=== PATIENT | female | born 1970 | race Two or more races ===

== ENCOUNTER 2024-05-09 00:08 | Inpatient (IN) | payer MEDICARE, OTHER ==
[2024-05-09] VITALS (13 sets, daily range): BP systolic 132–145; BP diastolic 64–65; TEMP 98.1–99; O2SAT 96–100
[~2024-05-09] VITALS: Ht 157.5 cm; Wt 121.6 kg
[~2024-05-09 00:08] MED LIST: ATOR10TA PO; BENA20TA78 PO; DULO30CA2 PO; FAMO20TA80 PO; GABA300C PO; GLIM4TAB PO; HYDR-500 PO; Insulin Glargine,Hum.rec.anlog SQ; NITR100C6 PO; PREG75CA PO; PROP20TA19 PO; SITA100T PO; SPIR25TA PO
[2024-05-09] MEDS ORDERED: ALBUTEROL FS 2.5 MG/0.5 ML VIAL.NEB ONE (00:58)
[2024-05-09] MEDS: ALBUTEROL FS 2.5 MG/0.5 ML VIAL.NEB NEB ONE (01:08)
[2024-05-09 01:11] LABS: BASOPHILS % (AUTO) 0.6 % (0.0-2.0); EOSINOPHILS # (AUTO) 0.1 K/uL (0.0-0.7); EOSINOPHILS % (AUTO) 2.1 % (0.0-6.0); HEMATOCRIT 38 % (33-45); HEMOGLOBIN 12.8 g/dL (11.5-14.8); LYMPHOCYTES # (AUTO) 1.6 K/uL (0.8-4.8); LYMPHOCYTES % (AUTO) 37.1 % (20.0-44.0); MEAN CORPUSCULAR HEMOGLOBIN 30 PG (26.0-33.0); MEAN CORPUSCULAR HGB CONC 34 g/dl (31.0-36.0); MEAN CORPUSCULAR VOLUME 89 fL (82-100); MONOCYTES # (AUTO) 0.8 K/uL (0.1-1.30); NEUTROPHILS # (AUTO) 1.9 K/uL (1.8-8.9); NEUTROPHILS % (AUTO) 43.2 % (43.0-81.0); PLATELET COUNT (AUTO) 318 K/uL (150-450); RED BLOOD CELL COUNT(AUTO) 4.28 MIL/uL (4.0-5.2); RED CELL DISTRIBUTION WIDTH 14.5 % (11.5-15.0); WHITE BLOOD COUNT (AUTO) 4.4 K/uL (4.3-11.0)
[2024-05-09 01:18] LABS: CALCIUM, SERUM 9.2 mg/dL (8.5-10.1); CARBON DIOXIDE 28 mmol/L (21-32); CHLORIDE 96 mmol/L (98-107); GLUCOSE 249 mg/dL (74-106); POTASSIUM 3.6 mmol/L (3.5-5.1); SODIUM SERUM 134 mmol/L (136-145); UREA NITROGEN, BLOOD 13 mg/dL (7-18)
[2024-05-09 01:24] LABS: ALANINE AMINOTRANSFERASE 35 U/L (12-78); ALBUMIN 3.7 g/dL (3.4-5.0); ALKALINE PHOSPHATASE 150 U/L (46-116); ASPARTATE AMINOTRANSFERASE 28 U/L (15-37); BILIRUBIN,DIRECT 0.1 mg/dL (0.0-0.2); BILIRUBIN,TOTAL 0.3 mg/dL (0.2-1.0); TOTAL PROTEIN, SERUM 8.1 g/dL (6.4-8.2)
[2024-05-09] MEDS ORDERED: CEFTRIAXONE 1GM BAG (ER ONLY) 50 ML IV ONE (01:43)
[2024-05-09] MEDS ORDERED: AZITHROMYCIN 500 MG VIAL ONE (01:43)
[2024-05-09] MEDS ORDERED: IV NS 0.9% 250 ML IV ONE (01:50)
[2024-05-09] MEDS ORDERED: CT SWABBABLE VALVE TRANS SET 1 EA INFUS.SET MC ONE (01:50)
[2024-05-09] MEDS ORDERED: IOHEXOL-350 100 ML VIAL IV ONE (01:50)
[2024-05-09] MEDS: AZITHROMYCIN 500 MG in IV D5W 250 ML IV ONE (02:00)
[2024-05-09] MEDS: CEFTRIAXONE 1GM BAG (ER ONLY) 1 GM/50 ML PIGGYBACK IV ONE (02:00)
[2024-05-09] MEDS ORDERED: ENOXAPARIN SODIUM 60 MG/0.6 ML DISP.SYRIN SQ ONE (04:52)
[2024-05-09] MEDS: ENOXAPARIN SODIUM 120 MG/0.8 ML DISP.SYRIN SQ ONE (04:55)
[2024-05-09] MEDS ORDERED: Z GUARD REMEDY 4 OZ OINT TP PRN (05:00)
[2024-05-09] MEDS ORDERED: ALBUTEROL FS 2.5 MG/3 ML VIAL.NEB NEB PRN (05:00)
[2024-05-09 05:32] LABS: BASOPHILS % (AUTO) 0.6 % (0.0-2.0); EOSINOPHILS # (AUTO) 0.1 K/uL (0.0-0.7); EOSINOPHILS % (AUTO) 1.7 % (0.0-6.0); HEMATOCRIT 35 % (33-45); HEMOGLOBIN 11.9 g/dL (11.5-14.8); LYMPHOCYTES # (AUTO) 1.4 K/uL (0.8-4.8); LYMPHOCYTES % (AUTO) 34.4 % (20.0-44.0); MEAN CORPUSCULAR HEMOGLOBIN 30 PG (26.0-33.0); MEAN CORPUSCULAR HGB CONC 34 g/dl (31.0-36.0); MEAN CORPUSCULAR VOLUME 89 fL (82-100); MONOCYTES # (AUTO) 0.7 K/uL (0.1-1.30); MONOCYTES % (AUTO) 17.7 % (2.0-12.0); NEUTROPHILS # (AUTO) 1.8 K/uL (1.8-8.9); NEUTROPHILS % (AUTO) 45.6 % (43.0-81.0); PLATELET COUNT (AUTO) 277 K/uL (150-450); RED BLOOD CELL COUNT(AUTO) 3.96 MIL/uL (4.0-5.2); RED CELL DISTRIBUTION WIDTH 14.3 % (11.5-15.0)
[2024-05-09 06:12] LABS: CALCIUM, SERUM 8.9 mg/dL (8.5-10.1); CARBON DIOXIDE 28 mmol/L (21-32); CHLORIDE 97 mmol/L (98-107); CREATININE 0.9 mg/dL (0.6-1.3); GLUCOSE 309 mg/dL (74-106); POTASSIUM 3.6 mmol/L (3.5-5.1); SODIUM SERUM 134 mmol/L (136-145); UREA NITROGEN, BLOOD 13 mg/dL (7-18)
[2024-05-09 06:16] LABS: MAGNESIUM 2.1 mg/dL (1.8-2.4); PHOSPHORUS 3.6 mg/dL (2.5-4.9)
[2024-05-09] MEDS ORDERED: INSULIN REGULAR, HUMAN 100 UNIT/ML 10 ML VIAL SQ SCH (07:30)
[2024-05-09] MEDS: BLOOD SUGAR DIAGNOSTIC 1 EACH STRIP IN SCH ×2 (08:50→12:06)
[2024-05-09] MEDS: PANTOPRAZOLE 40 MG TABLET.DR PO SCH (09:18)
[2024-05-09] MEDS ORDERED: *INSULIN REGULAR(HUMULIN R)HUM 100 UNIT/ML VIAL SQ PRN (09:30)
[2024-05-09] MEDS ORDERED: DEXTROSE 50%-WATER 50 ML DISP.SYRIN IV PRN ×2 (09:30→12:00)
[2024-05-09] MEDS: BLOOD SUGAR DIAGNOSTIC 1 EACH STRIP VI SCH (09:34)
[2024-05-09] MEDS: INSULIN REGULAR, HUMAN 100 UNIT/ML 3 ML VIAL SQ PRN ×2 (11:29→17:08)
[2024-05-09] MEDS: ACETAMINOPHEN 325 MG TABLET PO PRN (11:43)
[2024-05-09] MEDS: IPRATROPIUM NEB FS 0.5 MG/2.5 ML AMPUL.NEB NEB SCH (13:27)
[2024-05-09] MEDS: ALBUTEROL FS 2.5 MG/3 ML VIAL.NEB NEB SCH (13:27)
[2024-05-09] MEDS: MORPHINE SULFATE INJ 2 MG/ML DISP.SYRIN IVP PRN (15:54)
[2024-05-09] MEDS: CEFTRIAXONE 1 G in IV D5W 50 ML IV SCH (20:03)
[2024-05-09] MEDS: AZITHROMYCIN 500 MG in IV D5W 250 ML IV SCH (20:58)
[2024-05-09] MEDS: ENOXAPARIN SODIUM 40 MG/0.4 ML DISP.SYRIN SQ SCH (21:14)
[2024-05-09] MEDS: *INSULIN REGULAR(HUMULIN R)HUM 100 UNIT/ML VIAL SQ PRN (22:38)
[2024-05-10] VITALS (17 sets, daily range): BP systolic 112–136; BP diastolic 56–71; TEMP 97.9–99; O2SAT 92–100
[2024-05-10] MEDS: MAGNESIUM HYDROXIDE 30 ML UDC PO PRN (03:50)
[2024-05-10] MEDS: ONDANSETRON HCL/PF 4 MG/2 ML VIAL IV PRN (08:31)
[2024-05-10] MEDS: MAG HYDROX/AL HYDROX/SIMETH 30 ML UDC PO PRN (10:53)
[2024-05-10] MEDS: LORAZEPAM 1 MG TABLET PO PRN (14:23)
[2024-05-11 08:00] VITALS: BP 118/72; TEMP 98.4; O2SAT 99
[2024-05-11 08:18] LABS: CALCIUM, SERUM 8.6 mg/dL (8.5-10.1); CREATININE 0.7 mg/dL (0.6-1.3); POTASSIUM 4.6 mmol/L (3.5-5.1)
[2024-05-11] MEDS: APIXABAN 5 MG TABLET PO SCH (08:19)
[2024-05-11 08:36] VITALS: O2SAT 97
[2024-05-11 08:51] VITALS: O2SAT 99
[2024-05-11 11:12] LABS: ABG PH 7.467 (7.350-7.450); ABG PO2 75.2 mmHg (83.0-108.0); ABG TOTAL HEMOGLOBIN 13.3 G/dL (12.0-16.0); AaDO2 31.4 mmHg; COHb 0.3 % (0.5-1.5); MetHb 0.2 % (0.0-1.5); O2Hb 94.5 % (94.0-97.0); SITE, ABG Right Radial; VENT MODE, BG RA
[2024-05-11] MEDS ORDERED: AMOX-430 PO (15:25)
[2024-05-11] MEDS ORDERED: AZIT1PAC9 PO (15:25)
[2024-05-11] MEDS ORDERED: AZIT250T13 PO (15:25)
[2024-05-11] MEDS ORDERED: APIX5TAB PO (15:25)
[2024-05-11] MEDS ORDERED: INSULIN GLARGINE, 100 UNIT/ML CARTRIDGE SQ SCH (22:00)
== END 2024-05-11 15:43 | disposition left against medical advice (07) | DRG 175 ==
LOC: ER 00:10 → TELE 07:25 → MED 05-10 16:15
PROVIDERS: ADMIT Internal Medicine; ATTEND Internal Medicine
DX: I26.99 Other pulmonary embolism without acute cor pulmonale (principal); J18.9 Pneumonia, unspecified organism; J96.01 Acute respiratory failure with hypoxia; Z68.42 Body mass index [BMI] 45.0-49.9, adult; I10 Essential (primary) hypertension; E11.9 Type 2 diabetes mellitus without complications; Z20.822 Contact with and (suspected) exposure to COVID-19; K29.70 Gastritis, unspecified, without bleeding; Z87.440 Personal history of urinary (tract) infections; Z86.19 Personal history of other infectious and parasitic diseases; Z79.84 Long term (current) use of oral hypoglycemic drugs; Z79.899 Other long term (current) drug therapy; Z79.4 Long term (current) use of insulin; E78.5 Hyperlipidemia, unspecified; E66.01 Morbid (severe) obesity due to excess calories; G47.33 Obstructive sleep apnea (adult) (pediatric)
CPT/HCPCS: 36415; 36600; 70220-TC; 71045-TC; 80048-TC; 80076-TC; 82803-TC; 82962-TC; 83605-TC; 83735-TC; 83880; 84100-TC; 84484-TC; 85025-TC; 87040-TC; 93970-TC; 94799-TC; A4223; G0378; J0456; J0696; J1650; J1815; J2270; J2405; J7030; J7050; J7060; Q9967